=== PATIENT | female | born 1955 | race Hispanic/Latino ===

== ENCOUNTER 2018-09-06 20:49 | Emergency (ER) | payer OTHER, SELFPAY | END 2018-09-06 22:31 | disposition home or self-care (01) | LOC: EDH 20:49 | DX: A08.4 Viral intestinal infection, unspecified (principal); I10 Essential (primary) hypertension ==

== ENCOUNTER 2020-03-20 12:53 | Emergency (ER) | payer OTHER, SELFPAY | END 2020-03-20 14:53 | disposition home or self-care (01) | LOC: EDH 12:53 | DX: M79.662 Pain in left lower leg (principal); I10 Essential (primary) hypertension; E11.9 Type 2 diabetes mellitus without complications; J45.909 Unspecified asthma, uncomplicated; F32.9 Major depressive disorder, single episode, unspecified | CPT/HCPCS: 93971 ==

== ENCOUNTER 2021-08-26 00:22 | Emergency (ER) | payer BC, OTHER ==
[~2021-08-26] VITALS: Ht 162.6 cm; Wt 95.7 kg
[2021-08-26 00:24] VITALS: BP 167/76
[2021-08-26 02:05] LABS: APPEARANCE,URINE Cloudy (CLEAR); BILIRUBIN,URINE Negative (NEGATIVE); COLOR,URINE Dark Yellow (YELLOW); GLUCOSE, URINE (UA) Negative (NEGATIVE); KETONES,URINE Negative (NEGATIVE); LEUKOCYTE ESTERASE ,URINE Moderate (NEGATIVE); NITRATE,URINE Positive (NEGATIVE); OCCULT BLOOD,URINE Large (NEGATIVE); PH,URINE 6.5 (5.0-8.0); PROTEIN,URINE 300 mg/dL (NEGATIVE)
[2021-08-26 02:13] LABS: BACTERIA,URINE Few /HPF (None Seen); SQUAMOUS EPITHELIAL CELL,UR Rare /HPF (0-2)
[2021-08-26 02:14] LABS: MUCUS,URINE Rare LPF (None Seen)
[2021-08-26] MEDS ORDERED: SULF1TAB42 PO (02:23)
[2021-08-26] MEDS ORDERED: FLUC100T12 PO (02:23)
[2021-08-26] MEDS ORDERED: PHENAZOPYRIDINE HCL 200 MG TABLET ONE (02:32)
[2021-08-26] MEDS ORDERED: ACETAMINOPHEN 500 MG TABLET PO ONE (03:00)
[2021-08-26] MEDS ORDERED: PHENAZOPYRIDINE HCL 200 MG TABLET PO ONE (03:00)
== END 2021-08-26 02:47 | disposition home or self-care (01) ==
LOC: EDH 00:22
DX: N39.0 Urinary tract infection, site not specified (principal); B37.3 Candidiasis of vulva and vagina; F32.A Depression, unspecified; E11.9 Type 2 diabetes mellitus without complications; I10 Essential (primary) hypertension
CPT/HCPCS: 81001; 87088

== ENCOUNTER 2022-04-08 13:01 | Emergency (ER) | payer BC ==
[~2022-04-08] VITALS: Ht 170.2 cm; Wt 96.2 kg
[~2022-04-08 13:01] MED LIST: FLUC100T12 PO; SULF1TAB42 PO
[2022-04-08 13:23] VITALS: BP 165/69
[2022-04-08 13:48] LABS: APPEARANCE,URINE CLEAR (CLEAR); BILIRUBIN,URINE NEGATIVE (NEGATIVE); COLOR,URINE LIGHT-YELLOW (YELLOW); GLUCOSE, URINE (UA) NEGATIVE (NEGATIVE); KETONES,URINE NEGATIVE (NEGATIVE); LEUKOCYTE ESTERASE ,URINE NEGATIVE Leu/uL (NEGATIVE); NITRATE,URINE NEGATIVE (NEGATIVE); OCCULT BLOOD,URINE NEGATIVE (NEGATIVE); PROTEIN,URINE NEGATIVE (NEGATIVE); UROBILINOGEN,URINE 0.2 mg/dL (0.2-1.0)
[2022-04-08 14:26] LABS: BASOPHILS % (AUTO) 0.7 % (0.0-5.0); EOSINOPHILS % (AUTO) 0.9 % (0.0-8.0); HEMATOCRIT 42.8 % (36-48); LYMPHOCYTES % (AUTO) 25.8 % (21.0-51.0); MEAN CORPUSCULAR HEMOGLOBIN 27.6 pg (27.0-33.0); MEAN CORPUSCULAR HGB CONC 34.8 g/dL (32.0-36.0); MEAN CORPUSCULAR VOLUME 79.4 fL (79-99); MONOCYTES % (AUTO) 5.5 % (3.0-13.0); NEUTROPHILS % (AUTO) 66.7 % (40.0-77.0); PLATELET COUNT (AUTO) 281 K/uL (130-400); RED BLOOD CELL COUNT(AUTO) 5.39 MIL/uL (4.00-5.50); RED CELL DISTRIBUTION WIDTH 13.1 % (11.0-15.5); WHITE BLOOD COUNT (AUTO) 7.5 K/uL (4.8-10.8)
[2022-04-08 14:35] LABS: CREATININE 0.8 mg/dL (0.5-1.5); POTASSIUM 3.8 mmol/L (3.5-5.1)
[2022-04-08 14:40] LABS: ALBUMIN 4.2 g/dL (3.5-5.0)
[2022-04-08 15:01] LABS: B-TYPE NATRIURETIC PEPTIDE 16 pg/mL (0-100)
[2022-04-08] MEDS ORDERED: PANT40TA55 PO (18:35)
[2022-04-08] MEDS ORDERED: PANTOPRAZOLE 40 MG TAB DR ONE (18:53)
[2022-04-08] MEDS ORDERED: PANTOPRAZOLE 40 MG TAB DR PO SCH (19:00)
== END 2022-04-08 18:58 | disposition home or self-care (01) ==
LOC: EDH 13:01
DX: R07.89 Other chest pain (principal); R51.9 Headache, unspecified; I10 Essential (primary) hypertension; R42 Dizziness and giddiness; F41.9 Anxiety disorder, unspecified; E11.9 Type 2 diabetes mellitus without complications; Z79.899 Other long term (current) drug therapy
CPT/HCPCS: 36415; 70450; 71045; 80053; 81003; 83880; 84484; 85025; 93005

== ENCOUNTER → 2023-01-18 | Outpatient (CLI) | payer OTHER ==
[~2023-01-18] MED LIST changes: +PANT40TA55 PO
== END | disposition home or self-care (01) ==
LOC: RAH 09:01
PROVIDERS: ATTEND Internal Medicine
DX: K76.0 Fatty (change of) liver, not elsewhere classified (principal); R74.01 Elevation of levels of liver transaminase levels; R16.0 Hepatomegaly, not elsewhere classified
CPT/HCPCS: 76700